=== PATIENT | female | born 1980 | race Two or more races ===

== ENCOUNTER 2017-11-09 16:11 | Emergency (ER) | payer OTHER, MEDICAID ==
[~2017-11-09] VITALS: Ht 170.2 cm; Wt 69.0 kg
[2017-11-09 16:12] VITALS: BP 114/9
== END 2017-11-09 17:10 | disposition home or self-care (01) ==
LOC: ED 16:35
DX: O26.892 Other specified pregnancy related conditions, second trimester (principal); F11.20 Opioid dependence, uncomplicated; Z3A.22 22 weeks gestation of pregnancy
CPT/HCPCS: 99283

== ENCOUNTER 2018-03-14 20:35 | Inpatient (IN) | payer MEDICAID ==
[~2018-03-14] VITALS: Ht 170.2 cm; Wt 80.0 kg
[2018-03-14 21:08] VITALS: BP 143/82
[2018-03-14 21:30] LABS: AMPHETAMINE SCREEN, URINE Negative (Negative); BARBITURATE SCREEN, URINE Negative (Negative); BENZODIAZEPINE SCREEN, URINE Negative (Negative); CANNABINOID SCREEN, URINE Negative (Negative); COCAINE SCREEN, URINE Negative (Negative); METHADONE SCREEN, URINE Positive (Negative); OPIATE SCREEN, URINE Negative (Negative)
[2018-03-14 21:40] LABS: MICROSCOPIC INDICATED
[2018-03-14 21:47] LABS: CULTURE INDICATED? NO
[2018-03-14] MEDS ORDERED: OXYTOCIN 30U/ 0.9% NaCL 500ML 500 ML IV ONE (21:50)
[2018-03-14] MEDS: LACTATED RINGERS 1,000 ML IV SCH ×2 (21:50→22:42)
[2018-03-14] MEDS ORDERED: FENTANYL/BUPIV./NS/PF 250 ML EPIDCONT SCH ×2 (21:50→22:42)
[2018-03-14] MEDS ORDERED: OXYTOCIN 30U/ 0.9% NaCL 500ML 500 ML ONE (21:59)
[2018-03-14] MEDS ORDERED: LIDOCAINE 1%, 20ML ONE (21:59)
[2018-03-14] MEDS ORDERED: MISOPROSTOL 200 MCG TABLET ONE (21:59)
[2018-03-14] MEDS ORDERED: NEWBORN KIT ONE (21:59)
[2018-03-14] MEDS ORDERED: SODIUM CITRATE/CITRIC ACID 30 ML UDC PO PRN (22:00)
[2018-03-14] MEDS ORDERED: ONDANSETRON 2MG/ML, 2ML IVPush PRN (22:00)
[2018-03-14] MEDS ORDERED: CALCIUM CARBONATE 500 MG TAB.CHEW PO PRN (22:00)
[2018-03-14] MEDS ORDERED: LACTATED RINGERS 1,000 ML IVBOLUS PRN ×2 (22:00→23:00)
[2018-03-14] MEDS ORDERED: METOCLOPRAMIDE 5 MG/ML, 2ML IVPush PRN (22:00)
[2018-03-14 22:17] LABS: BASOPHILS # (AUTO) 0.04 x10^3/uL (0-0.1); BASOPHILS % (AUTO) 0 % (0-1); EOSINOPHILS # (AUTO) 0.09 x10^3/uL (0-0.4); EOSINOPHILS % (AUTO) 1 % (1-7); LYMPHOCYTES # (AUTO) 1.96 x10^3/uL (1-3.4); LYMPHOCYTES % (AUTO) 15 % (22-44); MD NO; MEAN CORPUSCULAR HEMOGLOBIN 32.3 pg (27.0-34.8); MEAN CORPUSCULAR HGB CONC 33.8 g/dL (32.4-35.8); MEAN CORPUSCULAR VOLUME 95.7 fL (80-100); MEAN PLATELET VOLUME 8.7 fL (7.4-10.4); MONOCYTES # (AUTO) 0.75 x10^3/uL (0.2-0.8); MONOCYTES % (AUTO) 6 % (2-9); NEUTROPHILS # (AUTO) 10.06 x10^3/uL (1.8-6.8); NEUTROPHILS % (AUTO) 78 % (42-75); PLATELET COUNT 179 x10^3/uL (130-400); RED BLOOD COUNT 4.33 x10^6/uL (3.82-5.3)
[2018-03-14] MEDS ORDERED: FENTANYL PF 500 MCG, BUPIVACAINE/PF 0.5%, 30ML 62.5 ML in SODIUM CHLORIDE 0.9% 177.5 ML EPIDCONT SCH (22:30)
[2018-03-14] MEDS ORDERED: BUPIVACAINE 0.25% ONE (22:43)
[2018-03-14] MEDS ORDERED: NALOXONE 0.4 MG/ML, 1ML IVPush PRN (23:00)
[2018-03-14] MEDS ORDERED: EPHEDRINE 50 MG/ML, 1ML IVPush PRN (23:00)
[2018-03-15] MEDS: D5%-LACTATED RINGERS 1,000 ML IV SCH ×4 (00:49→21:50)
[2018-03-15] MEDS ORDERED: OXYTOCIN 30U/ 0.9% NaCL 500ML 500 ML IV PRN (02:08)
[2018-03-15] MEDS ORDERED: FENTANYL PF 100 MCG/2ML ONE (05:44)
[2018-03-15] MEDS: LACTATED RINGERS 1,000 ML IV SCH ×6 (05:50→22:42)
[2018-03-15] MEDS ORDERED: FENTANYL PF 100 MCG/2ML IV PRN (06:00)
[2018-03-15] MEDS ORDERED: FENTANYL PF 100 MCG/2ML IVPush PRN (06:00)
[2018-03-15] MEDS ORDERED: IBUPROFEN 600 MG TABLET ONE (07:41)
[2018-03-15] MEDS: IBUPROFEN 600 MG TABLET PO PRN ×2 (08:05→14:09)
[2018-03-15 10:05] VITALS: BP 128/73
[2018-03-15] MEDS ORDERED: METH40TA3 PO (14:29)
[2018-03-15 15:52] LABS: BASOPHILS # (AUTO) 0.05 x10^3/uL (0-0.1); BASOPHILS % (AUTO) 0 % (0-1); EOSINOPHILS # (AUTO) 0.16 x10^3/uL (0-0.4); EOSINOPHILS % (AUTO) 1 % (1-7); LYMPHOCYTES # (AUTO) 1.89 x10^3/uL (1-3.4); LYMPHOCYTES % (AUTO) 12 % (22-44); MD NO; MEAN CORPUSCULAR HEMOGLOBIN 32.8 pg (27.0-34.8); MEAN CORPUSCULAR HGB CONC 34.4 g/dL (32.4-35.8); MEAN CORPUSCULAR VOLUME 95.3 fL (80-100); MEAN PLATELET VOLUME 8.9 fL (7.4-10.4); MONOCYTES # (AUTO) 1.04 x10^3/uL (0.2-0.8); MONOCYTES % (AUTO) 7 % (2-9); NEUTROPHILS # (AUTO) 12.91 x10^3/uL (1.8-6.8); NEUTROPHILS % (AUTO) 80 % (42-75); PLATELET COUNT 153 x10^3/uL (130-400); RED BLOOD COUNT 3.54 x10^6/uL (3.82-5.3)
[2018-03-15 16:05] VITALS: BP 120/60
[2018-03-15 20:00] VITALS: BP 118/71
[2018-03-15] MEDS: METHADONE 40 MG TABLET.SOL PO SCH ×2 (21:00→22:17)
[2018-03-16 00:30] VITALS: BP 125/72
[2018-03-16] MEDS: IBUPROFEN 600 MG TABLET PO PRN ×3 (00:43→13:54)
[2018-03-16] MEDS ORDERED: OXYcodone/APAP 5/325MG TABLET ONE (01:31)
[2018-03-16] MEDS: OXYcodone/APAP 5/325MG TABLET PO PRN ×4 (01:34→20:02)
[2018-03-16 04:30] VITALS: BP 121/68
[2018-03-16 07:30] VITALS: BP 117/70
[2018-03-16] MEDS: METHADONE 40 MG TABLET.SOL PO SCH ×2 (09:40→22:14)
[2018-03-16] MEDS ORDERED: OXYcodone/APAP 5/325MG TABLET PO PRN ×2 (17:30)
[2018-03-16] MEDS ORDERED: ONDANSETRON 2MG/ML, 2ML IV PRN (17:30)
[2018-03-16] MEDS ORDERED: MISOPROSTOL 200 MCG TABLET PR PRN (17:30)
[2018-03-16] MEDS ORDERED: IBUPROFEN 600 MG TABLET PO PRN (17:30)
[2018-03-16] MEDS ORDERED: DOCUSATE 100 MG CAPSULE PO PRN (17:30)
[2018-03-16] MEDS ORDERED: METHYLERGONOVINE 0.2 MG/ML IM PRN (17:30)
[2018-03-16] MEDS ORDERED: OXYTOCIN 30U/ 0.9% NaCL 500ML 500 ML IV SCH (17:30)
[2018-03-16 20:00] VITALS: BP 125/73
[2018-03-17] MEDS: OXYcodone/APAP 5/325MG TABLET PO PRN ×3 (02:37→16:17)
[2018-03-17] MEDS: IBUPROFEN 600 MG TABLET PO PRN ×4 (02:39→22:28)
[2018-03-17] MEDS ORDERED: PRENATAL VIT/IRON/FA 1 EACH TABLET PO SCH (09:00)
[2018-03-17 09:45] VITALS: BP 134/70
[2018-03-17] MEDS: METHADONE 40 MG TABLET.SOL PO SCH ×2 (09:54→20:58)
[2018-03-17] MEDS ORDERED: IBUP-1223 PO (17:23)
== END 2018-03-17 22:30 | disposition home or self-care (01) | DRG 806 ==
LOC: LDOP 20:35 → LDIP 21:53 → 2NW 03-15 09:23
PROVIDERS: ADMIT Obstetrics & Gynecology; ATTEND Obstetrics & Gynecology
PROC: 10E0XZZ Delivery of Products of Conception, External Approach (ICD-10-PCS; principal; 2018-03-15)
PROC: 3E0R3BZ Introduction of Anesthetic Agent into Spinal Canal, Percutaneous Approach (ICD-10-PCS; 2018-03-15)
PROC: 00HU33Z Insertion of Infusion Device into Spinal Canal, Percutaneous Approach (ICD-10-PCS; 2018-03-15)
PROC: 10907ZC Drainage of Amniotic Fluid, Therapeutic from Products of Conception, Via Natural or Artificial Opening (ICD-10-PCS; 2018-03-15)
DX: O77.0 Labor and delivery complicated by meconium in amniotic fluid (principal); O99.324 Drug use complicating childbirth; Z37.0 Single live birth; F11.90 Opioid use, unspecified, uncomplicated; Z87.01 Personal history of pneumonia (recurrent); Z90.89 Acquired absence of other organs; Z82.49 Family history of ischemic heart disease and other diseases of the circulatory system; Z80.1 Family history of malignant neoplasm of trachea, bronchus and lung; Z87.891 Personal history of nicotine dependence; Z3A.40 40 weeks gestation of pregnancy
CPT/HCPCS: 36415; J7121; 80307; 81001; 82803; 85025; 86850; 86900; 88307; G0378; J3010; J2590; J7120

== ENCOUNTER 2020-11-17 09:24 | Outpatient (CLI) | payer MEDICAID ==
[~2020-11-17 09:24] MED LIST: IBUP-1223 PO; METH40TA3 PO
[2020-11-17] MEDS ORDERED: BUPR150T73 PO (09:47)
[2020-11-17] MEDS ORDERED: METH10TA2 PO (09:47)
== END 2020-11-17 23:59 | disposition home or self-care (01) ==
LOC: STAR 09:24
PROVIDERS: ATTEND Otolaryngology
DX: Z02.9 Encounter for administrative examinations, unspecified (principal)

== ENCOUNTER 2020-11-18 07:22 | Day surgery (SDC) | payer MEDICAID ==
[~2020-11-18] VITALS: Ht 170.2 cm; Wt 72.6 kg
[~2020-11-18 07:22] MED LIST changes: +BACITRACIN OINT 500U/GM, 15 GM ONE; +BUPR150T73 PO; +EPINEPHRINE 1 MG/ML, 1ML ONE; +EPINEPHRINE TOPICAL SOLN 1 MG/ML, 30ML ONE; +FLUORESCEIN SODIUM 500 MG/5 ML ONE; +LIDOCAINE 1%, 20ML ONE; +METH10TA2 PO; +OXYMETAZOLINE NASAL SPRAY 0.05%,30ML ONE
[2020-11-18 07:53] VITALS: BP 106/70
[2020-11-18] MEDS ORDERED: LACTATED RINGERS 1,000 ML IV SCH (08:00)
[2020-11-18] MEDS ORDERED: CHLORHEXIDINE 15 ML UDC PO ONE (08:00)
[2020-11-18 08:24] LABS: HCG UR SG 1.025 (1.003-1.030)
[2020-11-18] MEDS ORDERED: FENTANYL PF 100 MCG/2ML ONE (08:57)
[2020-11-18] MEDS ORDERED: MIDAZOLAM 1 MG/ML, 2ML ONE (08:57)
[2020-11-18] MEDS ORDERED: HYDROmorphone 1 MG/ML, 1ML INJ IVPush PRN (09:00)
[2020-11-18] MEDS ORDERED: PROMETHAZINE 12.5 MG SUPP PR PRN (09:00)
[2020-11-18] MEDS ORDERED: FENTANYL PF 100 MCG/2ML IV PRN (09:00)
[2020-11-18] MEDS ORDERED: PROMETHAZINE 25 MG/ML, 1ML IVPush PRN (09:00)
[2020-11-18] MEDS ORDERED: OXYcodone 5 MG/5 ML ORAL.SOL UDC PO PRN (09:00)
[2020-11-18] MEDS ORDERED: HYDROcodone/APAP 7.5-325MG/15ML UDC PO PRN (09:00)
[2020-11-18] MEDS ORDERED: MEPERIDINE/PF 25MG/0.5ML IVPush PRN (09:00)
[2020-11-18] MEDS ORDERED: DEXAMETHASONE 4 MG/ML, 1ML ONE (09:07)
[2020-11-18] MEDS ORDERED: SUCCINYLCHOLINE 20 MG/ML, 10ML ONE (10:36)
[2020-11-18] MEDS ORDERED: GLYCOPYRROLATE 0.2MG/1ML, 5ML ONE (10:36)
[2020-11-18] MEDS ORDERED: ONDANSETRON 2MG/ML, 2ML ONE (10:36)
[2020-11-18] MEDS ORDERED: NEOSTIGMINE 1 MG/ML, 10ML ONE (10:36)
[2020-11-18] MEDS ORDERED: ROCURONIUM 10MG/ML,5ML ONE (10:36)
[2020-11-18] MEDS ORDERED: CEFAZOLIN 1,000 MG ONE (10:36)
[2020-11-18] MEDS ORDERED: PROPOFOL 10 MG/ML, 20ML ONE (10:36)
[2020-11-18] MEDS ORDERED: PROMETHAZINE 25 MG/ML, 1ML ONE (11:46)
== END 2020-11-18 13:05 | disposition home or self-care (01) ==
LOC: OUT 07:22
PROVIDERS: ATTEND Otolaryngology
DX: J32.0 Chronic maxillary sinusitis (principal); J32.2 Chronic ethmoidal sinusitis; J33.8 Other polyp of sinus; J34.2 Deviated nasal septum; F32.9 Major depressive disorder, single episode, unspecified; Z79.899 Other long term (current) drug therapy; Z88.8 Allergy status to other drugs, medicaments and biological substances
CPT/HCPCS: 31253; 31256; 31257; 81025; 87070; 87075; 87076; 87205; 88304; 88311; J0171; J0330; J0690; J1100; J2250; J2405; J2704; J2710; J3010; J7120

== ENCOUNTER 2020-11-25 07:32 | Day surgery (SDC) | payer MEDICAID ==
[~2020-11-25] VITALS: Ht 170.2 cm; Wt 71.3 kg
[~2020-11-25 07:32] MED LIST changes: -BACITRACIN OINT 500U/GM, 15 GM ONE; -EPINEPHRINE 1 MG/ML, 1ML ONE; -EPINEPHRINE TOPICAL SOLN 1 MG/ML, 30ML ONE; -FLUORESCEIN SODIUM 500 MG/5 ML ONE; -LIDOCAINE 1%, 20ML ONE; -OXYMETAZOLINE NASAL SPRAY 0.05%,30ML ONE
[2020-11-25 07:54] VITALS: BP 104/69
[2020-11-25 07:58] VITALS: BP 104/69
[2020-11-25] MEDS ORDERED: LIDOCAINE 4% TOPICAL SOLUTION 50 ML TP ONE (08:50)
== END 2020-11-25 09:15 | disposition home or self-care (01) ==
LOC: OUT 07:32
PROVIDERS: ATTEND Otolaryngology
DX: J32.0 Chronic maxillary sinusitis (principal); J32.2 Chronic ethmoidal sinusitis; J34.2 Deviated nasal septum; J34.89 Other specified disorders of nose and nasal sinuses; G43.909 Migraine, unspecified, not intractable, without status migrainosus; Z20.822 Contact with and (suspected) exposure to COVID-19; Z88.8 Allergy status to other drugs, medicaments and biological substances
CPT/HCPCS: 87635